=== PATIENT | male | born 1960 | race African-American/Black ===

== ENCOUNTER 2018-04-25 17:48 | Emergency (ER) | payer OTHER ==
[~2018-04-25] VITALS: Ht 167.6 cm; Wt 85.0 kg
[2018-04-25 18:00] VITALS: Ht 167.6 cm; Wt 85.0 kg
[2018-04-25] MEDS ORDERED: LISINOPRIL10 MG PO (18:01)
[2018-04-25] MEDS ORDERED: NORVASC10 MG PO (18:02)
[2018-04-25] MEDS ORDERED: AMOXICILLIN875 MG PO (20:11)
[2018-04-25 20:25] VITALS: BP 165/82
== END 2018-04-25 20:25 | disposition home or self-care (01) ==
LOC: D.ER 17:48
DX: J01.90 Acute sinusitis, unspecified (principal); R09.89 Other specified symptoms and signs involving the circulatory and respiratory systems; H57.13 Ocular pain, bilateral